=== PATIENT | female | born 1990 | race Two or more races ===

== ENCOUNTER → 2020-10-09 | Outpatient (CLI) | payer OTHER | END | disposition home or self-care (01) | LOC: OFIC 805 14:00 | PROVIDERS: ATTEND Otolaryngology | DX: G50.1 Atypical facial pain (principal); J30.89 Other allergic rhinitis; R09.81 Nasal congestion; J34.3 Hypertrophy of nasal turbinates ==

== ENCOUNTER 2021-01-15 09:58 | Outpatient (CLI) | payer OTHER | END 2021-01-15 10:45 | disposition home or self-care (01) | LOC: OFIC 805 09:58 | PROVIDERS: ATTEND Otolaryngology | DX: J34.3 Hypertrophy of nasal turbinates (principal); R09.81 Nasal congestion; J30.89 Other allergic rhinitis ==